=== PATIENT | male | born 1970 | race Caucasian/White ===

== ENCOUNTER 2022-01-31 12:33 | Emergency (ER) | payer OTHER ==
[2022-01-31] MEDS ORDERED: Ketorolac Tromethamine 30 MG/ML VIAL ONE (14:58)
[2022-01-31] MEDS ORDERED: Orphenadrine Citrate 60 MG/2 ML VIAL IM SCH (15:45)
== END 2022-01-31 17:14 | disposition home or self-care (01) ==
LOC: ERS 12:33
DX: S42.032A Displaced fracture of lateral end of left clavicle, initial encounter for closed fracture (principal); W17.89XA Other fall from one level to another, initial encounter; Y93.39 Activity, other involving climbing, rappelling and jumping off
CPT/HCPCS: 71046; 72170; 96372; J1885; J2360